=== PATIENT | female | born 1995 | race American Indian/Alaskan Native ===

== ENCOUNTER 2016-08-20 03:50 | Emergency (ER) | payer MEDICAID ==
[2016-08-20 03:58] VITALS: BP 113/71
--- NOTE | 2016-08-20 04:27 | EDM.PDOC ---
ED HPI RENAL/ - General Chief Complaint: Genitourinary Problem Stated Complaint: PAIN IN PELVIC REGION Time Seen by Provider: 08/20/16 04:24 Source of Information: Reports: Patient History Limitations: Reports: No limitations - History of Present Illness INITIAL COMMENTS - FREE TEXT/NARRATIVE: saw clinic 2 weeks ago Tx with cream for yeast infection for a week but not any better so got appt' for Monday but can't wait due to burning sensation. denies . - Related Data Allergies/ADRs: Allergies Allergy/AdvReac Type Severity Reaction Status Date / Time coconut Allergy Itching Verified 08/20/16 03:58 cat fur Allergy Mild Itching Uncoded 04/03/16 23:43 and redness Home Meds: Home Meds . 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 Musculoskeletal History: Reports: Other (see below) Other Musculoskeletal History: bone spurs left foot Neurological History: Reports: None Psychiatric History: Reports: Anxiety, Depression Endocrine/Metabolic History: Reports: None Hematologic History: Reports: None Immunologic History: Reports: None Oncologic (Cancer) History: Reports: None Dermatologic History: Reports: None - Infectious Disease History Infectious Disease History: Reports: None - Past Surgical History HEENT Surgical History: Reports: Myringotomy w tube(s), Oral surgery Respiratory Surgical History: Reports: None GI Surgical History: Reports: None Female Surgical History: Reports: None Social & Family History - Family History Family Medical History: Noncontributory Psychiatric: Reports: Anxiety Other Psychiatric Family History: Mother - Tobacco Use Smoking Status *Q: Never Smoker Second Hand Smoke Exposure: No - Caffeine Use Caffeine Use: Reports: Soda - Alcohol Use Days Per Week of Alcohol Use: 0 - Recreational Drug Use Recreational Drug Use: No - Living Situation & Occupation Occupation: employed ED ROS GENERAL - Review of Systems Review Of Systems: ROS reveals no pertinent complaints other than HPI. ED EXAM, RENAL/ - Physical Exam Exam: See Below Exam Limited By: No limitations General Appearance: alert, WD/WN, no apparent distress Ears: hearing grossly normal Throat/Mouth: Normal voice, No airway compromise Head: atraumatic Neck: non-tender, full range of motion Respiratory/Chest: no respiratory distress Cardiovascular: regular rate, rhythm GI/Abdominal: soft, other (minimal suprapubic) Neurological: alert, oriented, normal cognition, normal gait, no motor/sensory deficits Psychiatric: normal affect, normal mood Skin Exam: Warm, Dry Lymphatic: no adenopathy Course - Vital Signs Last Recorded V/S: Last Vital Signs Temp 36.5 C 08/20/16 03:54 Pulse 91 08/20/16 03:54 Resp 18 08/20/16 03:54 BP 113/71 08/20/16 03:54 Pulse Ox 100 08/20/16 03:54 - Orders/Labs/Meds Orders: Active Orders 24 hr Category Date Time Status Fluconazole [Diflucan] Med 08/20/16 04:45 Ordered 100 mg PO DAILY Phenazopyridine [Urinary Pain Relief] Med 08/20/16 04:44 Once 95 mg PO ONETIME ONE Sulfamethoxazole/Trimethoprim [Septra DS] Med 08/20/16 04:44 Once 1 tab PO ONETIME ONE Medication Orders Fluconazole (Diflucan) 100 mg PO DAILY CARLOS Phenazopyridine HCl (Urinary Pain Relief) 95 mg PO ONETIME ONE Stop: 08/20/16 04:45 Trimethoprim/Sulfamethoxazole (Septra Ds) 1 tab PO ONETIME ONE Stop: 08/20/16 04:45 Labs: Laboratory Tests 08/20/16 08/20/16 Range/Units 03:55 04:00 Urine Color Yellow (YELLOW) Urine Appearance Slightly cloudy (CLEAR) Urine pH 5.5 (5.0-9.0) Ur Specific [place] >= 1.030 (1.005-1.030) Urine Protein Trace H (NEGATIVE) Urine Glucose (UA) Negative (NEGATIVE) Urine Ketones Negative (NEGATIVE) Urine Occult Blood Trace-intact H (NEGATIVE) Urine Nitrite Negative (NEGATIVE) Urine Bilirubin Negative (NEGATIVE) Urine Urobilinogen 0.2 (0.2-1.0) mg/dL Ur Leukocyte Esterase Trace H (NEGATIVE) Urine RBC 0-5 /HPF Urine WBC 20-30 H (0-5/HPF) /HPF Ur Epithelial Cells Moderate H /HPF Urine Bacteria Many H (0-FEW/HPF) /HPF Urine HCG, Qual Negative Meds: Medications Generic Name Dose Route Start Last Admin Trade Name Freq PRN Reason Stop Dose Admin Fluconazole 100 mg 08/20/16 04:45 Diflucan PO DAILY CARLOS Phenazopyridine HCl 95 mg 08/20/16 04:44 Urinary Pain Relief PO 08/20/16 04:45 ONETIME ONE Trimethoprim/Sulfamethoxazole 1 tab 08/20/16 04:44 Septra Ds PO 08/20/16 04:45 ONETIME ONE - Re-Assessments/Exams Free Text/Narrative Re-Assessment/Exam: 08/20/16 04:45 results discussed with Pt. Departure - Departure Time of Disposition: 04:46 Disposition: Home, Self-Care 01 Condition: good Clinical Impression: UTI, Urinary tract infectious disease, Monilial vaginitis Instructions: Urinary Tract Infection, Adult, [id number], Vaginal Yeast Infection, Adult Forms: ED Department Discharge Additional Instructions: 1) drink lots of liquids try cranberry juice 2) follow up at clinic Monday rx given: bactrim DS bid x 20 pyridium 100mg tid prn - My Orders Last 24 Hours: My Active Orders 08/20/16 04:44 Phenazopyridine [Urinary Pain Relief] 95 mg PO ONETIME ONE Sulfamethoxazole/Trimethoprim [Septra DS] 1 tab PO ONETIME ONE 08/20/16 04:45 Fluconazole [Diflucan] 100 mg PO DAILY - Assessment/Plan Last 24 Hours: My Active Orders 08/20/16 04:44 Phenazopyridine [Urinary Pain Relief] 95 mg PO ONETIME ONE Sulfamethoxazole/Trimethoprim [Septra DS] 1 tab PO ONETIME ONE 08/20/16 04:45 Fluconazole [Diflucan] 100 mg PO DAILY
[2016-08-20] MEDS ORDERED: Phenazopyridine 95 MG Tab PO ONE (04:44)
[2016-08-20] MEDS ORDERED: Sulfamethoxazole/Trimethoprim 800-160 MG Tab PO ONE (04:44)
[2016-08-20] MEDS ORDERED: Fluconazole 100 MG Tab PO SCH (04:45)
== END 2016-08-20 04:54 | disposition home or self-care (01) ==
LOC: DL.ED 03:50
DX: B37.3 Candidiasis of vulva and vagina (principal); N39.0 Urinary tract infection, site not specified; F41.9 Anxiety disorder, unspecified; F32.9 Major depressive disorder, single episode, unspecified; Z91.09 Other allergy status, other than to drugs and biological substances
CPT/HCPCS: 81001; 81025; 99283; A9270

== ENCOUNTER 2017-03-09 07:09 | Day surgery (SDC) | payer MEDICAID ==
[~2017-03-09 07:09] MED LIST: Bupivacaine 0.5% 10 ML SDV ONE; Lactated Ringers 1,000 ML IV SCH; Lidocaine 1% 30 ML SDV ONE; Sodium Chloride 0.9% 10 ML Syringe FLUSH PRN; ceFAZolin 1 GM in Premix Bag 1 BAG IV ONE
[2017-03-09] MEDS ORDERED: Bupivacaine 0.5% 10 ML SDV INJECT ONE ×2 (07:10→08:35)
[2017-03-09] MEDS ORDERED: Midazolam 1 MG/ML 2 ML SDV IV ONE (07:10)
[2017-03-09] MEDS ORDERED: Ketorolac 30 MG/ML SDV IVPUSH ONE (07:10)
[2017-03-09] MEDS ORDERED: Propofol 1,000 MG/100 ML SDV IV ONE (07:10)
[2017-03-09] MEDS ORDERED: Propofol 200 MG/20 ML SDV IV ONE (07:10)
[2017-03-09] MEDS ORDERED: Betamethasone Acetate/Betamethasone Sod Phosphate 30 MG/5 ML MDV ONE ×3 (07:10→08:57)
[2017-03-09] MEDS ORDERED: fentaNYL 100 MCG/2 ML SDV IV ONE (07:10)
[2017-03-09] MEDS ORDERED: Lidocaine 1% 30 ML SDV INJECT ONE ×2 (07:10→08:35)
[2017-03-09] MEDS ORDERED: Ondansetron 4 MG/2 ML SDV IV ONE (07:10)
[2017-03-09] MEDS ORDERED: Dexamethasone 4 MG/ML SDV IV ONE (07:10)
[2017-03-09] MEDS ORDERED: Dexamethasone 4 MG/ML SDV ONE (08:12)
[2017-03-09] MEDS ORDERED: Ondansetron 4 MG/2 ML SDV ONE (08:12)
[2017-03-09] MEDS ORDERED: Ketorolac 30 MG/ML SDV ONE (08:12)
[2017-03-09] MEDS ORDERED: Midazolam 1 MG/ML 2 ML SDV ONE (08:12)
[2017-03-09] MEDS ORDERED: fentaNYL 100 MCG/2 ML SDV ONE (08:24)
[2017-03-09] MEDS ORDERED: Acetaminophen/oxyCODONE 325-5 MG Tab PO PRN (09:36)
--- NOTE | 2017-03-09 09:38 | PCM.OPNOTE ---
- General Post-Op/Procedure Note Date of Surgery/Procedure: 03/09/17 Operative Procedure(s): left foot open plantar fasciectomy Pre Op Diagnosis: left foot plantar fasciitis Post-Op Diagnosis: agatha Anesthesia Technique: Local, MAC Primary Surgeon: Jeannette Schwartz Anesthesia Provider: Balaji Coto EBL in mLs: 5 Complications: none Condition: Good Free Text/Narrative:: Pt tolerated procedure well and was transported to recovery with vascular status intact to left foot. TT 19 mins. Well padded L&U splint applied with ankle in neutral.
[2017-03-09 10:37] VITALS: BP 90/56
--- NOTE | 2017-03-09 17:58 | OR ---
DATE: 03/09/2017 PREOPERATIVE DIAGNOSIS: Left foot plantar fasciitis. POSTOPERATIVE DIAGNOSIS: Left foot plantar fasciitis. PROCEDURE PERFORMED: Left foot open plantar fasciectomy. ANESTHESIA: Local MAC with preoperative local block of 10 mL of 1:1 mixture of 1% lidocaine plain and 0.5% Marcaine plain. TOURNIQUET TIME: 19 minutes. Pneumatic ankle tourniquet. ESTIMATED BLOOD LOSS: Minimal. SPECIMEN: None. COMPLICATIONS: None. INDICATIONS: Janel is a 21-year-old female who presents with chronic bilateral heel pain. I have been seen her for a few years now for the heel pain. She did get physical therapy with no relief. We have also tried injections in the past, which only helped for a few weeks and then the pain returned. I have given her ankle braces and arch supports, which only helped a little bit. She states that the pain is located to the plantar heels and she can only walk for approximately 4 minutes now before it becomes too painful. She has been massaging the area and soaking. Pain is worse first step out of bed or after rest. She has also tried immobilization in a Cam boot for 6 weeks with no relief. X-rays reveal a slight planus foot structure, really no spurring present at the plantar fascia insertion site, no signs of fracture present. MRI of the left foot from last year reveal some mild increased signal intensity at the plantar fascia insertion site. The patient voiced good understanding of proposed procedure and possible complications, elects to have surgery at this time. We are planning on doing a plantar fascia release, no bone spur excision. She understands and agrees. DESCRIPTION OF THE PROCEDURE: The patient was taken to the operating room, lying in the supine position. After adequate anesthesia induction as described above, the left foot was prepped and draped in the usual sterile fashion. A pneumatic ankle tourniquet was inflated to 225 mmHg. Attention was then directed to the left foot at the area just distal to the instep of the calcaneus where an approximately 4 cm transverse incision was made on the distal aspect of the foot to gain access to the medial and central band of the plantar fascia. Sharp and blunt dissection were performed down to the level of the plantar fascia band. An approximately 1 cm2 section of the central and medial band of the plantar fascia was released and resected from the foot. Inspection of the site revealed no further tightness of the plantar fascia in this area. The area was then irrigated with copious amounts of sterile saline. I did inject 1 mL of betamethasone into the area to help with postoperative pain. Deep closure was completed with 0 Vicryl. Skin closure was completed with 4-0 nylon. The area was dressed with Xeroform to the incision site, fluffs, Webril, and a well- padded L and U splint with the foot in 0 degrees. The patient tolerated anesthesia and procedure well and was transported to the recovery room with vital signs stable in good condition with vascular status intact to the left foot as noted by, maybe, hyperemia upon deflation of the tourniquet. Total tourniquet time was 19 minutes. The patient was then discharged home when she met hospital discharge requirements. [facility] /[id number]
== END 2017-03-09 11:45 | disposition home or self-care (01) ==
LOC: DL.SDS 07:09
PROVIDERS: ATTEND Podiatrist
DX: M72.2 Plantar fascial fibromatosis (principal); Z91.018 Allergy to other foods; Z91.09 Other allergy status, other than to drugs and biological substances; J30.81 Allergic rhinitis due to animal (cat) (dog) hair and dander; Z98.890 Other specified postprocedural states; Z79.899 Other long term (current) drug therapy
CPT/HCPCS: 28060; 81025; J0690; J0702; J1100; J1885; J2250; J2405; J2704; J3010; J7120; 01470

== ENCOUNTER 2017-05-15 23:35 | Emergency (ER) | payer MEDICAID ==
[2017-05-15 23:44] VITALS: BP 94/62
[2017-05-16] MEDS ORDERED: Nitrofurantoin Monohydrate/Macrocrystalline 100 MG Cap PO ONE (00:38)
[2017-05-16] MEDS ORDERED: Acetaminophen 325 MG Tab PO ONE (00:39)
--- NOTE | 2017-05-16 00:42 | EDM.PDOC ---
ED HPI GENERAL MEDICAL PROBLEM - General Chief Complaint: Genitourinary Problem Stated Complaint: ABD PAIN [id number] Time Seen by Provider: 05/15/17 23:45 Source of Information: Reports: Patient History Limitations: Reports: No Limitations - History of Present Illness INITIAL COMMENTS - FREE TEXT/NARRATIVE: Presents with c/o lower abdominal pain tonight, stated she thought it was cramps with her period, but did not get period tonight, LMP april 18. No fever, no vomiting, Notes difficulty sleeping, has not taken anything for pain. Pelvic Pain Score (Numeric/FACES): 6 - Related Data Allergies Allergy/AdvReac Type Severity Reaction Status Date / Time coconut Allergy Itching Verified 05/15/17 23:43 lavender (Lavandula Allergy Rash Verified 05/15/17 23:43 angustifolia) cat fur Allergy Mild Itching Uncoded 05/15/17 23:43 and redness Home Meds: Home Meds Sertraline [Zoloft] 150 mg PO BEDTIME 03/08/17 [History] Past Medical History - Past Health History Medical/Surgical History: Denies Medical/Surgical History HEENT History: Reports: Allergic Rhinitis, Impaired Vision Cardiovascular History: Reports: None Respiratory History: Reports: None Gastrointestinal History: Reports: Chronic Constipation Genitourinary History: Reports: None 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: 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 Musculoskeletal History: Reports: Other (See Below) Other Musculoskeletal History: bone spurs left foot Neurological History: Reports: Concussion Psychiatric History: Reports: Anxiety, Depression Endocrine/Metabolic History: Reports: None Hematologic History: Reports: None Immunologic History: Reports: None Oncologic (Cancer) History: Reports: None Dermatologic History: Reports: None - Infectious Disease History Infectious Disease History: Reports: None - Past Surgical History Head Surgeries/Procedures: Reports: None HEENT Surgical History: Reports: Myringotomy w Tube(s), Oral Surgery Cardiovascular Surgical History: Reports: None Respiratory Surgical History: Reports: None GI Surgical History: Reports: None Female Surgical History: Reports: None Endocrine Surgical History: Reports: None Neurological Surgical History: Reports: None Musculoskeletal Surgical History: Reports: None Oncologic Surgical History: Reports: None Dermatological Surgical History: Reports: None Social & Family History - Family History Family Medical History: Noncontributory Psychiatric: Reports: Anxiety Other Psychiatric Family History: Mother - Tobacco Use Smoking Status *Q: Never Smoker Second Hand Smoke Exposure: No - Caffeine Use Caffeine Use: Reports: Soda Other Caffeine Use: AVERAGE OF 3 12 OZ CANS OF SODA POP DAILY - Alcohol Use Days Per Week of Alcohol Use: 0 - Recreational Drug Use Recreational Drug Use: No Drug Use in Last 12 Months: No - Living Situation & Occupation Occupation: Employed ED ROS GENERAL - Review of Systems Review Of Systems: ROS reveals no pertinent complaints other than HPI. ED EXAM, GI/ABD - Physical Exam Exam: See Below Exam Limited By: No Limitations General Appearance: Alert, No Apparent Distress Eyes: Bilateral: EOMI Ears: Normal External Exam Nose: Normal Inspection Throat/Mouth: Normal Inspection Head: Atraumatic, Normocephalic Respiratory/Chest: No Respiratory Distress, Lungs Clear Cardiovascular: Normal Peripheral Pulses, Regular Rate, Rhythm, Tachycardia GI/Abdominal Exam: Normal Bowel Sounds, Soft, Tender (suprapubic) Back Exam: Normal Inspection Extremities: Normal Inspection, Normal Range of Motion Neurological: Alert, Oriented. No: Normal Cognition (lower functioning) Psychiatric: Normal Affect Skin Exam: Warm, Dry, Intact, Normal Color Course - Vital Signs Last Recorded V/S: Last Vital Signs Temp 97.4 F 05/15/17 23:39 Pulse 128 H 05/15/17 23:39 Resp 20 05/15/17 23:39 BP 94/62 05/15/17 23:39 Pulse Ox 99 05/15/17 23:39 - Orders/Labs/Meds Labs: Laboratory Tests 05/15/17 05/15/17 Range/Units 23:51 23:51 Urine Color Yellow (YELLOW) Urine Appearance Slightly cloudy (CLEAR) Urine pH 5.5 (5.0-9.0) Ur Specific [place] >= 1.030 (1.005-1.030) Urine Protein Negative (NEGATIVE) Urine Glucose (UA) Negative (NEGATIVE) Urine Ketones Negative (NEGATIVE) Urine Occult Blood Trace-lysed H (NEGATIVE) Urine Nitrite Negative (NEGATIVE) Urine Bilirubin Negative (NEGATIVE) Urine Urobilinogen 0.2 (0.2-1.0) mg/dL Ur Leukocyte Esterase Small H (NEGATIVE) Urine RBC 0-5 /HPF Urine WBC 10-20 H (0-5/HPF) /HPF Ur Epithelial Cells Moderate H /HPF Amorphous Sediment Rare (0/HPF) /HPF Urine Bacteria Few (0-FEW/HPF) /HPF Urine Mucus Rare /LPF Urine HCG, Qual Negative Meds: Medications Discontinued Medications Generic Name Dose Route Start Last Admin Trade Name Donato PRN Reason Stop Dose Admin Acetaminophen 650 mg 05/16/17 00:39 05/16/17 00:49 Tylenol PO 05/16/17 00:40 650 mg NOW ONE Administration Nitrofurantoin Macrocrystals 100 mg 05/16/17 00:38 05/16/17 00:49 Macrobid PO 05/16/17 00:39 100 mg ONETIME ONE Administration Departure - Departure Time of Disposition: 00:40 Disposition: Home, Self-Care 01 Condition: Fair Clinical Impression: UTI, Urinary tract infectious disease UTI (urinary tract infection) Qualifiers: Urinary tract infection type: site unspecified Hematuria presence: without hematuria Qualified Code(s): N39.0 - Urinary tract infection, site not specified - Discharge Information Instructions: Urinary Tract Infection, Adult, [id number] Referrals: PCP,None [Primary Care Provider] - Forms: ED Department Discharge Additional Instructions: macrobid one tablet twice daily for one week tylenol or ibuprofen for discomfort per package instructions increase fluid intake follow up if symptoms worsen, fevers, vomiting
== END 2017-05-16 00:52 | disposition home or self-care (01) ==
LOC: DL.ED 23:35
DX: N39.0 Urinary tract infection, site not specified (principal); F32.9 Major depressive disorder, single episode, unspecified; Z91.048 Other nonmedicinal substance allergy status; Z91.018 Allergy to other foods
CPT/HCPCS: 81001; 81025; 99284; A9270

== ENCOUNTER 2017-07-02 04:17 | Emergency (ER) | payer MEDICAID ==
[2017-07-02 04:27] VITALS: BP 110/66
--- NOTE | 2017-07-02 04:43 | EDM.PDOC ---
ED HPI GENERAL MEDICAL PROBLEM - General Chief Complaint: General Stated Complaint: IN BY AMBULANCE Time Seen by Provider: 07/02/17 04:30 Source of Information: Reports: Patient History Limitations: Reports: No Limitations - History of Present Illness INITIAL COMMENTS - FREE TEXT/NARRATIVE: This 22 yo female patient reports to the ED with a 2 week history of intermittent lightheadedness. The patient reports she was seen in the clinic last week for similar symptoms. The patient reports that the clinic did blood work, but did not give her any fluid. The patient believes that she is dehydrated. The patient reports some intermittent nausea and some loose bowel movements. The patient was able to ambulate from the ambulance to the ED room without difficulties. The patient was also able to ambulate from the ED bed to the bathroom and back to the ED bed without difficulties. Duration: Week(s): (2), Intermittent Location: Reports: Generalized Quality: Reports: Other Severity: Mild Improves with: Reports: Rest Worsens with: Reports: Movement Associated Symptoms: Reports: Other (light headed) - Related Data Allergies Allergy/AdvReac Type Severity Reaction Status Date / Time coconut Allergy Itching Verified 07/02/17 04:17 lavender (Lavandula Allergy Rash Verified 07/02/17 04:17 angustifolia) cat fur Allergy Mild Itching Uncoded 07/02/17 04:17 and redness Home Meds: Home Meds Sertraline [Zoloft] 150 mg PO BEDTIME 03/08/17 [History] Past Medical History - Past Health History Medical/Surgical History: Denies Medical/Surgical History HEENT History: Reports: Allergic Rhinitis, Impaired Vision Cardiovascular History: Reports: None Respiratory History: Reports: None Gastrointestinal History: Reports: Chronic Constipation Genitourinary History: Reports: None 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 Musculoskeletal History: Reports: Other (See Below) Other Musculoskeletal History: bone spurs left foot Neurological History: Reports: Concussion Psychiatric History: Reports: Anxiety, Depression Endocrine/Metabolic History: Reports: None Hematologic History: Reports: None Immunologic History: Reports: None Oncologic (Cancer) History: Reports: None Dermatologic History: Reports: None - Infectious Disease History Infectious Disease History: Reports: None - Past Surgical History Head Surgeries/Procedures: Reports: None HEENT Surgical History: Reports: Myringotomy w Tube(s), Oral Surgery Cardiovascular Surgical History: Reports: None Respiratory Surgical History: Reports: None GI Surgical History: Reports: None Female Surgical History: Reports: None Endocrine Surgical History: Reports: None Neurological Surgical History: Reports: None Musculoskeletal Surgical History: Reports: None Oncologic Surgical History: Reports: None Dermatological Surgical History: Reports: None Social & Family History - Family History Family Medical History: Noncontributory Psychiatric: Reports: Anxiety Other Psychiatric Family History: Mother - Tobacco Use Smoking Status *Q: Never Smoker Second Hand Smoke Exposure: Yes - Caffeine Use Caffeine Use: Reports: Soda Other Caffeine Use: AVERAGE OF 3 12 OZ CANS OF SODA POP DAILY - Alcohol Use Days Per Week of Alcohol Use: 0 - Recreational Drug Use Recreational Drug Use: No Drug Use in Last 12 Months: No - Living Situation & Occupation Occupation: Employed ED ROS GENERAL - Review of Systems Review Of Systems: ROS reveals no pertinent complaints other than HPI. ED EXAM, GENERAL - Physical Exam Exam: See Below Exam Limited By: No Limitations General Appearance: Alert, WD/WN, Anxious, Mild Distress Eye Exam: Bilateral Eye: EOMI, Normal Inspection, PERRL Ears: Normal External Exam, Normal Canal, Hearing Grossly Normal, Normal TMs Nose: Normal Inspection, Normal Mucosa, No Blood Throat/Mouth: Normal Inspection, Normal Lips, Normal Teeth, Normal Gums, Normal Oropharynx, Normal Voice, No Airway Compromise Head: Atraumatic, Normocephalic Neck: Normal Inspection, Supple, Non-Tender, Full Range of Motion Respiratory/Chest: No Respiratory Distress, Lungs Clear, Normal Breath Sounds, No Accessory Muscle Use, Chest Non-Tender Cardiovascular: Normal Peripheral Pulses, Regular Rate, Rhythm, No Edema, No Gallop, No JVD, No Murmur, No Rub GI/Abdominal: Normal Bowel Sounds, Soft, Non-Tender, No Organomegaly, No Distention, No Abnormal Bruit, No Mass (Female) Exam: Deferred Rectal (Female) Exam: Deferred Back Exam: Normal Inspection, Full Range of Motion, NT Extremities: Normal Inspection, Normal Range of Motion, Non-Tender, Normal Capillary Refill, No Pedal Edema Neurological: Alert, Oriented, CN II-XII Intact, Normal Cognition, Normal Gait, Normal Reflexes, No Motor/Sensory Deficits Psychiatric: Normal Affect, Normal Mood Skin Exam: Warm, Dry, Intact, Normal Color, No Rash Lymphatic: No Adenopathy Course - Vital Signs Last Recorded V/S: Last Vital Signs Temp 36.0 C 07/02/17 04:13 Pulse 87 07/02/17 04:26 Resp 18 07/02/17 04:13 BP 110/66 07/02/17 04:26 Pulse Ox 100 07/02/17 04:26 - Orders/Labs/Meds Orders: Active Orders 24 hr Category Date Time Status COMPREHENSIVE METABOLIC PN,CMP [CHEM] Urgent Lab 07/02/17 04:28 Received Labs: Laboratory Tests 07/02/17 07/02/17 Range/Units 04:28 04:30 WBC 8.0 (5.0-10.0) 10^3/uL RBC 4.67 (4.2-5.4) 10^6/uL Hgb 13.2 (12.0-16.0) g/dL Hct 40.5 (37.0-47.0) % MCV 86.7 D (80-100) fL MCH 28.3 (27.0-34.0) pg MCHC 32.6 L (33.0-35.0) g/dL Plt Count 247 (150-450) 10^3/uL Neut % (Auto) 48.1 (42.2-75.2) % Lymph % (Auto) 39.5 (20.5-50.1) % [place] % (Auto) 7.0 (2-8) % Eos % (Auto) 5.0 H (1.0-3.0) % Baso % (Auto) 0.4 (0.0-1.0) % Urine Color Yellow (YELLOW) Urine Appearance Slightly cloudy (CLEAR) Urine pH 6.0 (5.0-9.0) Ur Specific [place] 1.010 (1.005-1.030) Urine Protein Negative (NEGATIVE) Urine Glucose (UA) Negative (NEGATIVE) Urine Ketones Negative (NEGATIVE) Urine Occult Blood Negative (NEGATIVE) Urine Nitrite Negative (NEGATIVE) Urine Bilirubin Negative (NEGATIVE) Urine Urobilinogen 0.2 (0.2-1.0) mg/dL Ur Leukocyte Esterase Trace H (NEGATIVE) Urine RBC 0-5 /HPF Urine WBC 0-5 (0-5/HPF) /HPF Ur Epithelial Cells Moderate H /HPF Urine Bacteria Moderate H (0-FEW/HPF) /HPF Urinalysis Comment Departure - Departure Time of Disposition: 05:05 Disposition: Home, Self-Care 01 Condition: Fair Clinical Impression: Bacterial vaginosis - Discharge Information Instructions: Bacterial Vaginosis, Cepb-ic-[id number] Forms: ED Department Discharge Care Plan Goals: The patient was advised of the examination and lab results during the visit. The patient was given a script for Metronidazole (500 mg) to take 1 by mouth 2 times per day for 7 days. The patient should increase her oral fluid intake. If the patient has any additional symptoms or concerns, the patient should follow- up with her primary care facility. - My Orders Last 24 Hours: My Active Orders 07/02/17 04:28 COMPREHENSIVE METABOLIC PN,CMP [CHEM] Urgent - Assessment/Plan Last 24 Hours: My Active Orders 07/02/17 04:28 COMPREHENSIVE METABOLIC PN,CMP [CHEM] Urgent
[2017-07-02 04:58] LABS: CHLORIDE,CL 99 mmol/L (101-111); SODIUM,NA 129 mmol/L (135-145)
[2017-07-02] MEDS ORDERED: metroNIDAZOLE 250 MG Tab PO ONE (05:00)
== END 2017-07-02 05:05 | disposition home or self-care (01) ==
LOC: DL.ED 04:17
DX: N76.0 Acute vaginitis (principal); F32.9 Major depressive disorder, single episode, unspecified; Z77.22 Contact with and (suspected) exposure to environmental tobacco smoke (acute) (chronic); Z91.018 Allergy to other foods; Z91.09 Other allergy status, other than to drugs and biological substances
CPT/HCPCS: 36415; 80053; 81001; 85025; 99284; A9270

== ENCOUNTER 2018-01-31 02:40 | Emergency (ER) | payer MEDICAID ==
[2018-01-31 03:04] VITALS: BP 124/47
[2018-01-31] MEDS: Acetaminophen 325 MG Tab PO ONE (03:06)
--- NOTE | 2018-01-31 03:06 | EDM.PDOC ---
ED HPI GENERAL MEDICAL PROBLEM - General Chief Complaint: Upper Extremity Injury/Pain Stated Complaint: BAD PAIN DOWN LEFT ARM [id number] Time Seen by Provider: 01/31/18 02:50 Source of Information: Reports: Patient History Limitations: Reports: No Limitations - History of Present Illness INITIAL COMMENTS - FREE TEXT/NARRATIVE: This 22 yo female patient reports to the ED with a 4 hour history of left posterior shoulder pain. The patient reports her symptoms started at 2300 last night. The patient report she took 1 ibuprofen (200 mg) at midnight, but her pain has not gotten any better. The patient reports she has had a cold since this past Monday. The patient has been taking OTC medications for temporary symptom relief. 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 - Related Data Allergies Allergy/AdvReac Type Severity Reaction Status Date / Time coconut Allergy Itching Verified 07/02/17 04:17 lavender (Lavandula Allergy Rash Verified 07/02/17 04:17 angustifolia) cat fur Allergy Mild Itching Uncoded 07/02/17 04:17 and redness Home Meds: Home Meds Sertraline [Zoloft] 150 mg PO BEDTIME 03/08/17 [History] Past Medical History - Past Health History Medical/Surgical History: Denies Medical/Surgical History HEENT History: Reports: Allergic Rhinitis, Impaired Vision Cardiovascular History: Reports: None Respiratory History: Reports: None Gastrointestinal History: Reports: Chronic Constipation Genitourinary History: Reports: None 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 Musculoskeletal History: Reports: Other (See Below) Other Musculoskeletal History: bone spurs left foot Neurological History: Reports: Concussion Psychiatric History: Reports: Anxiety, Depression Endocrine/Metabolic History: Reports: None Hematologic History: Reports: None Immunologic History: Reports: None Oncologic (Cancer) History: Reports: None Dermatologic History: Reports: None - Infectious Disease History Infectious Disease History: Reports: None - Past Surgical History Head Surgeries/Procedures: Reports: None HEENT Surgical History: Reports: Myringotomy w Tube(s), Oral Surgery Cardiovascular Surgical History: Reports: None Respiratory Surgical History: Reports: None GI Surgical History: Reports: None Female Surgical History: Reports: None Endocrine Surgical History: Reports: None Neurological Surgical History: Reports: None Musculoskeletal Surgical History: Reports: None Oncologic Surgical History: Reports: None Dermatological Surgical History: Reports: None Social & Family History - Family History Family Medical History: Noncontributory Psychiatric: Reports: Anxiety Other Psychiatric Family History: Mother - Caffeine Use Caffeine Use: Reports: Soda Other Caffeine Use: AVERAGE OF 3 12 OZ CANS OF SODA POP DAILY - Living Situation & Occupation Occupation: Employed Review of Systems - Review of Systems Review Of Systems: ROS reveals no pertinent complaints other than HPI. ED EXAM, GENERAL - Physical Exam Exam: See Below Exam Limited By: No Limitations General Appearance: Alert, WD/WN, Mild Distress Eye Exam: Bilateral Eye: EOMI, Normal Inspection, PERRL Ears: Normal External Exam, Normal Canal, Hearing Grossly Normal, Normal TMs Nose: Normal Inspection, Normal Mucosa, No Blood Throat/Mouth: Normal Inspection, Normal Lips, Normal Teeth, Normal Gums, Normal Oropharynx, Normal Voice, No Airway Compromise Head: Atraumatic, Normocephalic Neck: Normal Inspection, Supple, Non-Tender, Full Range of Motion Respiratory/Chest: No Respiratory Distress, Lungs Clear, Normal Breath Sounds, No Accessory Muscle Use, Chest Non-Tender Cardiovascular: Normal Peripheral Pulses, Regular Rate, Rhythm, No Edema, No Gallop, No JVD, No Murmur, No Rub GI/Abdominal: Normal Bowel Sounds, Soft, Non-Tender, No Organomegaly, No Distention, No Abnormal Bruit, No Mass (Female) Exam: Deferred Rectal (Female) Exam: Deferred Back Exam: Normal Inspection, Full Range of Motion, NT Extremities: Arm Pain (left shoulder pain, some pain with range of motion, but no limitations ) Neurological: Alert, Oriented, CN II-XII Intact, Normal Cognition, Normal Gait, Normal Reflexes, No Motor/Sensory Deficits Psychiatric: Normal Affect, Normal Mood Skin Exam: Warm, Dry, Intact, Normal Color, No Rash Lymphatic: No Adenopathy Course - Orders/Labs/Meds Orders: Active Orders 24 hr Category Date Time Status Acetaminophen [Tylenol] Med 01/31/18 03:00 Once 650 mg PO NOW ONE Departure - Departure Time of Disposition: 03:08 Disposition: Home, Self-Care 01 Condition: Fair Clinical Impression: Muscle strain of left shoulder Qualifiers: Encounter type: initial encounter Qualified Code(s): S46.912A - Strain of unspecified muscle, fascia and tendon at shoulder and upper arm level, left arm , initial encounter - Discharge Information *PRESCRIPTION DRUG MONITORING PROGRAM REVIEWED*: Not Applicable *COPY OF PRESCRIPTION DRUG MONITORING REPORT IN PATIENT EUGENE: Not Applicable Instructions: Muscle Strain, [id number] Care Plan Goals: The patient was advised of the examination results during the visit. The patient was given an oral dose of Acetaminophen while in the ED. The patient was encouraged to rest and ice the area of concern. If the patient has any additional symptoms or concerns, the patient should follow-up with her primary care facility or return to the emergency department. - My Orders Last 24 Hours: My Active Orders 01/31/18 03:00 Acetaminophen [Tylenol] 650 mg PO NOW ONE - Assessment/Plan Last 24 Hours: My Active Orders 01/31/18 03:00 Acetaminophen [Tylenol] 650 mg PO NOW ONE
== END 2018-01-31 03:14 | disposition home or self-care (01) ==
LOC: DL.ED 02:40
DX: S46.912A Strain of unspecified muscle, fascia and tendon at shoulder and upper arm level, left arm, initial encounter (principal); Z91.018 Allergy to other foods; Z88.8 Allergy status to other drugs, medicaments and biological substances; X58.XXXA Exposure to other specified factors, initial encounter
CPT/HCPCS: 99283; A9270

== ENCOUNTER 2018-03-01 06:18 | Day surgery (SDC) | payer MEDICAID ==
[2018-03-01] MEDS ORDERED: Succinylcholine 200 MG/10 ML MDV IV ONE (06:19)
[2018-03-01] MEDS ORDERED: Dexamethasone 4 MG/ML SDV IV ONE (06:19)
[2018-03-01] MEDS ORDERED: Propofol 200 MG/20 ML SDV IV ONE (06:19)
[2018-03-01] MEDS ORDERED: Lidocaine 2% 20 ML MDV INJECT ONE (06:19)
[2018-03-01] MEDS ORDERED: Lidocaine 1% 30 ML SDV INJECT ONE (06:19)
[2018-03-01] MEDS ORDERED: Rocuronium 50 MG/5 ML Vial IV ONE (06:19)
[2018-03-01] MEDS ORDERED: Betamethasone Acetate/Betamethasone Sod Phosphate 30 MG/5 ML MDV ONE ×2 (06:19→08:47)
[2018-03-01] MEDS ORDERED: Ondansetron 4 MG/2 ML SDV IV ONE (06:19)
[2018-03-01] MEDS ORDERED: Ketorolac 30 MG/ML SDV IVPUSH ONE (06:19)
[2018-03-01] MEDS ORDERED: Bupivacaine 0.5% 30 ML SDV INJECT ONE (06:19)
[2018-03-01] MEDS ORDERED: Midazolam 1 MG/ML 2 ML SDV IV ONE (06:19)
[2018-03-01] MEDS: Lactated Ringers 1,000 ML IV SCH (06:42)
[2018-03-01] MEDS ORDERED: Bupivacaine 0.5% 30 ML SDV ONE (07:52)
[2018-03-01] MEDS ORDERED: Lidocaine 1% 30 ML SDV ONE (07:52)
[2018-03-01] MEDS ORDERED: Sodium Chloride 0.9% 10 ML Syringe FLUSH PRN ×2 (08:21)
[2018-03-01] MEDS ORDERED: Lactated Ringers 1,000 ML IV SCH (08:30)
[2018-03-01] MEDS: Bupivacaine 0.5% 30 ML SDV INJECT ONE (09:00)
[2018-03-01] MEDS: Betamethasone Acetate/Betamethasone Sod Phosphate 30 MG/5 ML MDV ONE (09:00)
[2018-03-01] MEDS: Lidocaine 1% 30 ML SDV INJECT ONE (09:00)
[2018-03-01] MEDS ORDERED: Acetaminophen/oxyCODONE 325-5 MG Tab PO PRN (09:11)
--- NOTE | 2018-03-01 09:15 | PCM.OPNOTE ---
- General Post-Op/Procedure Note Date of Surgery/Procedure: 03/01/18 Operative Procedure(s): right foot open plantar fasciotomy Pre Op Diagnosis: right foot plantar fasciitis Post-Op Diagnosis: agatha Anesthesia Technique: General ET Tube Primary Surgeon: Jeannette Schwartz Anesthesia Provider: Balaji Coto EBL in mLs: 5 Complications: none Condition: Good Free Text/Narrative:: Pt tolerated procedure well and was transported to recovery with vascular status intact to right . TT 17 mins. Well padded L&U splint applied with foot in slight dorsiflexion
--- NOTE | 2018-03-01 14:29 | OR ---
DATE: 03/01/2018 PREOPERATIVE DIAGNOSIS: Right foot plantar fasciitis. POSTOPERATIVE DIAGNOSIS: Right foot plantar fasciitis. PROCEDURE PERFORMED: Right foot open plantar fasciectomy. ANESTHESIA: Preoperative block of 10 mL 1:1 mixture of 1% lidocaine plain and 0.5% Marcaine plain, general anesthesia. TOURNIQUET TIME: Pneumatic ankle tourniquet, 17 minutes. ESTIMATED BLOOD LOSS: Minimal. SPECIMEN: None. COMPLICATIONS: None. INDICATIONS: Janel is a 22-year-old female who presents with right foot chronic heel pain. I have seen her for a couple of years for this heel pain. Last 02/2017, I did a left foot plantar fascia release. She had good relief with that and would like to have her right foot done now. She has failed conservative options for the heel pain including physical therapy, injections, Cam boot, and immobilization. She has been using ankle braces and arch supports. The patient voiced good understanding of the proposed procedure and possible complications and elects to have surgery at this time. DESCRIPTION OF PROCEDURE: The patient was taken to the operating room lying in supine position. After adequate anesthesia induction as described above, the right foot was prepped and draped in the usual sterile fashion. A pneumatic ankle tourniquet was inflated to 225 mmHg. Attention was then directed to the right foot at the area just distal to the instep of the calcaneus, where an approximately 4 cm transverse incision was made on the distal aspect of the foot to gain access to the medial and central band of the plantar fascia. Sharp and blunt dissection were performed down to the level of the plantar fascia band. An approximately 1 cm2 section of the central and medial band of the plantar fascia was released and resected from the foot. Inspection of the site revealed no further tightness of the plantar fascia. The foot was then irrigated with copious amounts of sterile saline. I injected 1 mL of betamethasone to the area. I did this last surgery, and it did help with her postoperative pain, so I did this again. Deep closure was completed with 3-0 Vicryl, and skin closure was completed with 4-0 nylon. The area was dressed with Xeroform to the incision site, fluffs, Webril, and a well-padded L and U splint with the foot in slight dorsiflexion. The patient tolerated anesthesia and the procedure well and was transferred to recovery with vital signs stable in good condition with vascular status intact to the right foot as noted by immediate hyperemia upon deflation of the tourniquet. Total tourniquet time was 17 minutes. She was then discharged to home when she met hospital discharge requirements. [facility] /[id number]
[2018-03-01 14:34] VITALS: BP 107/77
== END 2018-03-01 11:33 | disposition home or self-care (01) ==
LOC: DL.SDS 06:18
PROVIDERS: ATTEND Podiatrist
DX: M72.2 Plantar fascial fibromatosis (principal); F41.8 Other specified anxiety disorders; K21.9 Gastro-esophageal reflux disease without esophagitis; Z79.899 Other long term (current) drug therapy; Z91.048 Other nonmedicinal substance allergy status; R62.50 Unspecified lack of expected normal physiological development in childhood
CPT/HCPCS: 81025; J0330; J0702; J1100; J1885; J2250; J2405; J2704; J3490; J7120